=== PATIENT | male | born 2000 | race Caucasian/White ===

== ENCOUNTER 2024-04-02 04:56 | Emergency (ER) | payer MEDICAID ==
[2024-04-02 05:03] VITALS: TEMP 99
[2024-04-02] MEDS ORDERED: EMLA Cream 5 GM TP ONE (05:20)
[2024-04-02] MEDS ORDERED: TYLENOL 325 MG ONE (05:20)
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
[2024-04-02] MEDS: TYLENOL 325 MG PO ONE (05:23)
[2024-04-02] MEDS: EMLA Cream 5 GM TP ONE (05:23)
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
[2024-04-02 08:02] VITALS: BP 118/74; PULSE 70; RESP 18; O2SAT 97
== END 2024-04-02 07:50 | disposition home or self-care (01) ==
LOC: ED 04:56
DX: S01.01XA Laceration without foreign body of scalp, initial encounter (principal); S02.2XXA Fracture of nasal bones, initial encounter for closed fracture; Y04.2XXA Assault by strike against or bumped into by another person, initial encounter; Z79.891 Long term (current) use of opiate analgesic
CPT/HCPCS: 12001; 70450; 70486; 71250; 72125; 99284; A9270-GY